=== PATIENT | male | born 1980 | race Caucasian/White ===

== ENCOUNTER 2021-04-25 02:41 | Emergency (ER) | payer OTHER ==
[~2021-04-25] VITALS: Ht 182.9 cm; Wt 77.1 kg
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
--- NOTE | 2021-04-25 03:02 | NUR ---
RAD AT BEDSIDE
[2021-04-25] MEDS ORDERED: LIDOCAINE 2% 20 ML MDV TP ONE (03:30)
[2021-04-25] MEDS ORDERED: BUPIVACAINE 0.5 % PF 150 MG/30 ML VIAL IJ ONE (03:30)
[2021-04-25] MEDS ORDERED: LIDOCAINE HCL/MPF 1% 30 ML VIAL IJ ONE (03:35)
[2021-04-25] MEDS ORDERED: BUPIVACAINE 0.5 % PF 150 MG/30 ML VIAL ONE (03:35)
[2021-04-25] MEDS ORDERED: LIDOCAINE 2% 20 ML MDV ONE (03:41)
[2021-04-25 05:42] VITALS: BP 129/62
--- NOTE | 2021-04-25 05:43 | NUR ---
Patient discharged to home in stable condition. Written and verbal after care instructions given. Patient verbalizes understanding of instruction.
== END 2021-04-25 05:43 | disposition home or self-care (01) ==
LOC: ER 02:51
DX: S62.336A Displaced fracture of neck of fifth metacarpal bone, right hand, initial encounter for closed fracture (principal); S62.314A Displaced fracture of base of fourth metacarpal bone, right hand, initial encounter for closed fracture; W22.01XA Walked into wall, initial encounter; Y93.89 Activity, other specified; Y92.89 Other specified places as the place of occurrence of the external cause; Y99.8 Other external cause status
CPT/HCPCS: 26742; 73130 ×2; 99284; J3490 ×3